=== PATIENT | female | born 1955 | race Caucasian/White ===

== ENCOUNTER 2024-11-03 10:42 | Emergency (ER) | payer MEDICARE ==
[2024-11-03 10:50] VITALS: TEMP 97.9
[2024-11-03] MEDS: LIDOCAINE 1% INJ 10MG/ML (20 ML MDV) SQ ONE (12:09)
[2024-11-03] MEDS: SULFAMETHOX-TMP 800-160MG 1 EACH TAB PO STA (12:10)
--- NOTE | 2024-11-03 12:42 | ED ---
Recheck HPI - General Chief Complaint: Recheck/Abnormal Lab/Rx Stated Complaint: sores on legs Time Seen by Provider: 11/03/24 10:56 Source: patient, RN notes reviewed Mode of arrival: ambulatory Limitations: no limitations - History of Present Illness Initial Comments: This is a 68-year-old female presenting with sores on the left leg x 3 days. Patient states 2-3 sores and draining with attempted expression. Endorses history of similar abscesses in legs in the past. Endorses some associated pain with ambulation. Denies associated fever, chills, red streaking. Onset/Timin -: days(s) Initial Visit For: abscess Associated Symptoms: none - Related Data Previous Rx's Medication Instructions Recorded Cephalexin [Keflex] 500 mg PO Q6HR 10 Days #40 cap 11/03/24 Ibuprofen [Motrin] 800 mg PO Q8H PRN #30 tab 11/03/24 Mupirocin 2% Oint [Bactroban 2% 1 applic TOPICAL TID #22 gm 11/03/24 Oint] Sulfamethox-Tmp 800-160Mg [Bactrim 1 each PO Q12HR #20 tab 11/03/24 Ds] Allergies Allergy/AdvReac Type Severity Reaction Status Date / Time No Known Allergies Allergy Verified 11/03/24 10:50 Review of Systems ROS Statement: Those systems with pertinent positive or pertinent negative responses have been documented in the HPI. ROS Other: All systems not noted in ROS Statement are negative. Past Medical History Past Medical History: Asthma, Cancer, COPD History of Any Multi-Drug Resistant Organisms: None Reported Past Surgical History: Back Surgery Additional Past Surgical History / Comment(s): CA,Eyes Past Psychological History: No Psychological Hx Reported Smoking Status: Former smoker Past Alcohol Use History: None Reported Past Drug Use History: None Reported General Exam Limitations: no limitations General appearance: alert, in no apparent distress Head exam: Present: atraumatic, normocephalic, normal inspection Eye exam: Present: normal appearance, PERRL, EOMI. Absent: scleral icterus, conjunctival injection, periorbital swelling ENT exam: Present: normal exam, mucous membranes moist Neck exam: Present: normal inspection. Absent: tenderness, meningismus, lymphadenopathy Respiratory exam: Present: normal lung sounds bilaterally. Absent: respiratory distress, wheezes, rales, rhonchi, stridor Cardiovascular Exam: Present: regular rate, normal rhythm, normal heart sounds. Absent: systolic murmur, diastolic murmur, rubs, gallop, clicks GI/Abdominal exam: Present: soft, normal bowel sounds. Absent: distended, tenderness, guarding, rebound, rigid Extremities exam: Present: normal inspection, full ROM, normal capillary refill. Absent: tenderness, pedal edema, joint swelling, calf tenderness Back exam: Present: normal inspection Neurological exam: Present: alert, oriented X3, CN II-XII intact Psychiatric exam: Present: normal affect, normal mood Skin exam: Present: warm, dry, intact, normal color, other (3 subcutaneous abscesses on mid anterior aspect of left peralta traveling laterally and superiorly with overlying erythema and tenderness. No obvious thin, shiny peak or discharge). Absent: rash Course Vital Signs 11/03/24 11/03/24 10:46 13:03 Temperature 97.9 F 97.9 F Pulse Rate 101 H 98 Respiratory 20 18 Rate Blood Pressure 129/62 124/79 O2 Sat by Pulse 97 98 Oximetry Procedures - Incision & Drainage Consent Obtained: verbal consent Indication: Abscesses Site: lower extremity (Left peralta) Size (cm): 3 (3 abscesses total) Anesthetic Used: lidocaine 1% Amount (mLs): 4 I&D Cleaning Method: Betadine Sterile Field Used?: No Scalpel Used: #11 Ultrasound used: No Needle Aspiration Performed?: No Irrigation Performed?: Yes I&D Drainage Obtained: Blood Insertion of drain: No Culture Obtained?: Yes Complications: bleeding Patient Tolerated Procedure: well, no complications, other (Irrigation performed and culture obtained. Procedure site cleaned well following incisions. 4 x 4 gauze placed followed by Kerlix roll and Marcial wrap.) Medical Decision Making - Medical Decision Making Was pt. sent in by a medical professional or institution (, PA, FILE MACHINE OPERATOR, urgent care, hospital, or group home...) When possible be specific @ -No Did you speak to anyone other than the patient for history (EMS, parent, family, police, friend...)? What history was obtained from this source @ -No Did you review nursing and triage notes (agree or disagree)? Why? @ -I reviewed and agree with nursing and triage notes Were old charts reviewed (outside hosp., previous admission, EMS record, old EKG, old radiological studies, urgent care reports/EKG's, group home records)? Report findings @ -No old charts were reviewed Differential Diagnosis (chest pain, altered mental status, abdominal pain women, abdominal pain men, vaginal bleeding, weakness, fever, dyspnea, syncope, headache, dizziness, GI bleed, back pain, seizure, CVA, palpatations, mental health, musculoskeletal)? @ -Subcutaneous abscess, MRSA, cellulitis, necrotizing fasciitis, this is not an exhaustive list EKG interpreted by me (3pts min.). @ -Not done X-rays interpreted by me (1pt min.). @ -None done CT interpreted by me (1pt min.). @ -None done U/S interpreted by me (1pt. min.). @ -None done What testing was considered but not performed or refused? (CT, X-rays, U/S, labs)? Why? @ -None What meds were considered but not given or refused? Why? @ -None Did you discuss the management of the patient with other professionals (professionals i.e. , PA, FILE MACHINE OPERATOR, lab, RT, psych nurse, rn social work, vehicle damage appraiser, teacher, credit review officer, manager rn case)? Give summary @ -No Was smoking cessation discussed for >3mins.? @ -No Was critical care preformed (if so, how long)? @ -No Were there social determinants of health that impacted care today? How? (Homelessness, low income, unemployed, alcoholism, drug addiction, transportatio n, low edu. Level, literacy, decrease access to med. care, penitentiary, rehab)? @ -No Was there de-escalation of care discussed even if they declined (Discuss DNR or withdrawal of care, Hospice)? DNR status @ -No What co-morbidities impacted this encounter? (DM, HTN, Smoking, COPD, CAD, Cancer, CVA, ARF, Chemo, Hep., AIDS, mental health diagnosis, sleep apnea, morbid obesity)? @ -None Was patient admitted / discharged? Hospital course, mention meds given and route, prescriptions, significant lab abnormalities, going to OR and other pertinent info. @ -I&D performed on all 3 abscesses with only blood expressed. Culture obtained, irrigation performed and incision sites covered and wrapped. Patient provided IM Toradol and initial dose of p.o. Bactrim DS provided. Keflex, Bactrim DS, Motrin 800 and mupirocin ointment sent to patient's pharmacy. Advised dressing change twice daily and warm compresses 4 times daily. Discussed patient with Dr. Nichols. Undiagnosed new problem with uncertain prognosis? @ -No Drug Therapy requiring intensive monitoring for toxicity (Heparin, Nitro, Insulin, Cardizem)? @ -No Were any procedures done? @ -I&D performed on all 3 abscesses without complication Diagnosis/symptom? @ -Subcutaneous abscess Acute, or Chronic, or Acute on Chronic? @ -Acute Uncomplicated (without systemic symptoms) or Complicated (systemic symptoms)? @ -Uncomplicated Side effects of treatment? @ -No Exacerbation, Progression, or Severe Exacerbation? @ -No Poses a threat to life or bodily function? How? (Chest pain, [place], [place], pneumonia, PE, COPD, DKA, ARF, appy, cholecystitis, CVA, Diverticulitis, Homicidal, Suicidal, threat to staff... and all critical care pts) @ -No Disposition Clinical Impression: Abscess of left leg Disposition: HOME SELF-CARE Instructions (If sedation given, give patient instructions): Abscess Incision and Drainage (ED) Additional Instructions: Keep incision sites clean with antibacterial soap and water at least twice daily with dressing change. Apply warm compress for 10 minutes up to 4 times daily. Prescriptions: Sulfamethox-Tmp 800-160Mg [Bactrim Ds] 1 each PO Q12HR #20 tab Mupirocin 2% Oint [Bactroban 2% Oint] 1 applic TOPICAL TID #22 gm Cephalexin [Keflex] 500 mg PO Q6HR 10 Days #40 cap Ibuprofen [Motrin] 800 mg PO Q8H PRN #30 tab PRN Reason: Pain Is patient prescribed a controlled substance at d/c from ED?: No Referrals: None,Stated [Primary Care Provider] - 1-2 days Kateryna Guajardo MD [REFERRING] - 1-2 days Time of Disposition: 12:42
[2024-11-03] MEDS: KETOROLAC 15 MG/ML 1 ML VIAL IM STA (12:55)
[2024-11-03 13:05] VITALS: BP 124/79; PULSE 98; RESP 18
== END 2024-11-03 13:16 | disposition home or self-care (01) ==
LOC: EC 10:42
DX: L02.416 Cutaneous abscess of left lower limb (principal); Z87.891 Personal history of nicotine dependence
CPT/HCPCS: 87070; 87205; 87077; 87186; 99283; 10060; 96372; J2003; J1885